=== PATIENT | male | born 2005 | race Two or more races ===

== ENCOUNTER 2025-06-02 20:59 | Emergency (ER) | payer SELFPAY ==
[~2025-06-02] VITALS: Ht 167.6 cm; Wt 72.8 kg
[2025-06-02 21:02] VITALS: BP 142/68; TEMP 97; O2SAT 97
== END 2025-06-02 21:55 | disposition left against medical advice (07) ==
LOC: M ED 20:59
DX: Z53.21 Procedure and treatment not carried out due to patient leaving prior to being seen by health care provider (principal)